=== PATIENT | female | born 1975 | race African-American/Black ===

== ENCOUNTER 2017-03-31 06:45 | Emergency (ER) | payer OTHER ==
[~2017-03-31] VITALS: Ht 157.5 cm; Wt 132.4 kg
[~2017-03-31 06:45] MED LIST: ACETAMINOPHEN-1 EAC1 PO; AMITRIPTYLINE H50 M4 PO; AMOXICILLIN 50500 MG PO; AMOXICILLIN875 MG PO; ATROVENT15 ML NS; AUGMENTIN 875-1 EACH PO; AUGMENTIN 875875 MG PO; AZITHROMYCIN 2250 MG PO; BACTRIM DS TAB1 EACH PO; BENTYL 10 MG CA10 M1; BENTYL 10 MG CA10 M1 PO; BENTYL 20 MG TA20 M1 PO; BIAXIN 500 MG500 M2 PO; CARAFATE 1 GM TA1 GM PO; CIPROFLOXACIN500 M1 PO; CLARITIN10 MG PO; COUMADIN 1MG TAB1 M1 PO; COUMADIN 2 MG TA2 M1 PO; COUMADIN 5 MG TA5 M1 PO; CRUTCH1 EACH MC; DIFLUCAN150 MG PO; ENOXAPARIN100 MG/1 M SQ; ENOXAPARIN150 MG/11 SUBQ; FIORICET 50-301 EACH PO; FIORICET 50-321 EACH PO; FLEXERIL PO; FLOMAX0.4 MG PO; FLONASE 0.05%50 MCG NASAL; FLONASE 0.05%50 MCG NS; FLONASE16 GM NASAL; GABAPENTIN 100100 MG PO; HYDROCODON-ACE1 EAC7 PO; HYDROCODONE-AP1 EAC6 PO; IBUPROFEN 800800 M1 PO; KEFLEX500 MG PO; LOPRESSOR50 PO; LOSARTAN POTASS50 MG PO; LOSARTAN-HCTZ1 EACH PO; LOVENOX SC; MEDROLDOSEPACK PO; NOHOMEMEDICATIONS; NORCO 5-325 TA1 EAC1 PO; NORCO 5-325 TA1 EACH PO; NORCO 7.5-3251 EACH PO; ONDANSETRON HCL4 M2 PO; OXYCODONE; OXYCODONE HCL 55 MG PO; OXYCODONE HCL10 MG PO; OXYCONTIN10 M1 PO; PAXIL10 MG; PERCOCET 10-321 EACH PO; PERCOCET 5-3251 EACH PO; PERCOCET PO; PHENERGAN 25 MG25 M1 PO; PREDNISONE 20 M20 M1 PO; PREDNISONE50 MG PO; PROMETHAZINE-D120 ML PO; PROMETHAZINE12.5 M1 PO; PROMS25 WY RECTAL; PROVENTIL IH; SENOKOT-S1 TA1 PO; SERTRALINE HCL50 MG PO; SUDAFED30 MG PO; TOBREX3.5 GM OP; TOBREX5 ML OP; TRAMADOL 50 MG50 MG PO; ULTRAM 50MG TAB50 MG PO; VICODIN; WELLBUTRIN 75 M75 M1 PO; WELLBUTRIN SR150 MG; WELLBUTRIN75 MG PO; XOPENEX1.25 MG/3 IH; ZOFRAN ODT4 MG PO; ZOFRAN4 MG PO; ZOLOFT100 MG PO; ZOLOFT20 MG/1 ML PO; ZOLOFT50 MG PO
[2017-03-31 07:23] LABS: ABSOLUTE BASOPHILS 0.1 thou/uL (0.0-0.2); ABSOLUTE EOSINOPHILS 0.1 thou/uL (0.0-0.7); ABSOLUTE MONOCYTES 0.5 thou/uL (0.0-1.2); ABSOLUTE NEUTROPHILS 1.5 thou/uL (1.6-8.1); BASOPHILS 1.3 %; EOSINOPHILS 1.2 %; HEMATOCRIT 35.9 % (37.0-47.0); HEMOGLOBIN 11.6 gm/dL (12.0-15.0); LYMPHOCYTES 48.5 %; MCH 26.8 pg (26.0-34.0); MCHC 32.3 g/dL (28.0-37.0); MCV 82.8 fL (80.0-100.0); MONOCYTES 12.4 %; NUCLEATED RBCS 0 /100WBC; PLATELET COUNT* 182 thou/uL (150-400); POLYS 36.6 %; RBC 4.33 mil/uL (4.20-5.00); RDW-CV 17.3 % (10.5-14.5); WBC 4.2 thou/uL (4.0-11.0)
[2017-03-31 07:29] LABS: CALCIUM 9.1 mg/dL (8.5-10.1); CREATININE 1.1 mg/dL (0.6-1.3); POTASSIUM 3.6 mmol/L (3.5-5.1)
[2017-03-31 07:34] LABS: ALBUMIN 3.9 g/dL (3.4-5.0); TOTAL BILIRUBIN 0.3 mg/dL (<0.1-1.0); TOTAL PROTEIN 7.9 g/dL (6.4-8.2)
[2017-03-31 07:49] LABS: APTT 34.2 Seconds (25.0-31.3); INR 2.8; PROTIME 27.2 Seconds (9.20-11.50)
[2017-03-31 08:03] VITALS: BP 144/70
--- NOTE | 2017-03-31 17:38 | EKG ---
[place] [address] ELECTROCARDIOGRAM REPORT Name: TURNERTODD Room: [facility]#: [id number] Admission: 03/31/17 Attend Phys: Discharge: 03/31/17 Date of : 73 Report #: [id number] THIS REPORT FOR: //name// [facility] ED Test Date: 2017-03-31 Test Time: 06:50:56 Pat Name: TODD TURNER Department: Room: Gender: F Journeyman Patternmaker: BRITTNEE Huizar : 1975 Requested By: Raquel Joseph Order Number: [id number] MD: Phan uTrner Measurements Intervals [place] Rate: 111 P: 51 [place]: 134 QRS: 44 QRSD: 73 T: 1 QT: 296 QTc: 402 Interpretive Statements Sinus tachycardia Low voltage, precordial leads Borderline T abnormalities, anterior leads Baseline wander in lead(s) V5,V6 Compared to ECG 05/27/2015 10:08:22 Low QRS voltage now present T-wave abnormality now present Electronically Signed On 03-31-2017 17:38:37 DIRECTOR CHECK by Phan Turner [email or web address] <ELECTRONICALLY SIGNED> By: Phan Turner MD, FACC 03/31/17 1738 0650 0650 Phan Turner MD, FAC /EPI
== END 2017-03-31 08:05 | disposition home or self-care (01) ==
LOC: M.ERS 06:45
PROVIDERS: Emergency Medicine; Family Medicine
DX: R07.89 Other chest pain (principal); G89.29 Other chronic pain; G43.909 Migraine, unspecified, not intractable, without status migrainosus; I10 Essential (primary) hypertension; Z86.718 Personal history of other venous thrombosis and embolism; Z88.8 Allergy status to other drugs, medicaments and biological substances

== ENCOUNTER → 2017-04-01 | Outpatient (CLI) | payer OTHER, MEDICAID | LOC: M.CT 11:00 | DX: K42.9 Umbilical hernia without obstruction or gangrene (principal) ==

== ENCOUNTER 2017-11-18 03:48 | Emergency (ER) | payer OTHER ==
[~2017-11-18] VITALS: Ht 154.9 cm; Wt 133.4 kg
[2017-11-18 04:40] LABS: HEMATOCRIT 40.6 % (37.0-47.0); HEMOGLOBIN 13.1 gm/dL (12.0-15.0); MCH 27.9 pg (26.0-34.0); MCHC 32.2 g/dL (28.0-37.0); MCV 86.5 fL (80.0-100.0); MPV 9.3 fl. (7.2-11.1); NUCLEATED RBCS 1 /100WBC; PLATELET COUNT* 188 thou/uL (150-400); RDW-CV 16.9 % (10.5-14.5); WBC 4.1 thou/uL (4.0-11.0)
[2017-11-18 06:01] LABS: ABSOLUTE BASOPHILS 0.1 thou/uL (0.0-0.2); ABSOLUTE LYMPHOCYTES 2.8 thou/uL (0.8-5.3); ABSOLUTE MONOCYTES 0.2 thou/uL (0.0-1.2); ABSOLUTE NEUTROPHILS 0.9 thou/uL (1.6-8.1); ANISOCYTOSIS Occasional; PLATELET ESTIMATE ADEQUATE
[2017-11-18 06:18] LABS: URINE BILIRUBIN NEGATIVE (Negative); URINE BLOOD NEGATIVE (Negative); URINE CLARITY CLEAR; URINE COLOR YELLOW; URINE GLUCOSE-RANDOM NEGATIVE (Negative); URINE KETONES NEGATIVE (Negative); URINE LEUKOCYTES-REFLEX NEGATIVE (Negative); URINE NITRITE-REFLEX NEGATIVE (Negative); URINE PROTEIN TRACE (Negative); URINE UROBILINOGEN 0.2 E.U./dl (0.2-1.0)
[2017-11-18 06:21] LABS: CALCIUM 8.8 mg/dL (8.5-10.1); POTASSIUM 3.9 mmol/L (3.5-5.1)
[2017-11-18 06:26] LABS: ALBUMIN 3.6 g/dL (3.4-5.0); TOTAL BILIRUBIN 0.3 mg/dL (<0.1-1.0); TOTAL PROTEIN 7.3 g/dL (6.4-8.2)
[2017-11-18 06:56] VITALS: BP 144/92
== END 2017-11-18 06:58 | disposition home or self-care (01) ==
LOC: M.ERS 03:48
PROVIDERS: Emergency Medicine
DX: G89.29 Other chronic pain (principal); R10.11 Right upper quadrant pain; G43.909 Migraine, unspecified, not intractable, without status migrainosus; I10 Essential (primary) hypertension; Z88.8 Allergy status to other drugs, medicaments and biological substances

== ENCOUNTER 2018-05-10 18:29 | Inpatient (IN) | payer BC ==
[~2018-05-10] VITALS: Ht 154.9 cm; Wt 141.1 kg
[2018-05-10 18:48] VITALS: BP 121/83
[2018-05-10 19:30] LABS: ALBUMIN 4.3 g/dL (3.4-5.0); CALCIUM 8.8 mg/dL (8.5-10.1); CREATININE 1.3 mg/dL (0.6-1.3); POTASSIUM 3.9 mmol/L (3.5-5.1); TOTAL BILIRUBIN 0.4 mg/dL (<0.1-1.0); TOTAL PROTEIN 7.5 g/dL (6.4-8.2)
[2018-05-10] MEDS ORDERED: OXYCODONE HCL 55 MG PO (19:34)
[2018-05-10] MEDS ORDERED: COUMADIN6 MG PO (19:34)
[2018-05-10 19:56] LABS: ABSOLUTE LYMPHOCYTES 1.4 thou/uL (0.8-5.3); ABSOLUTE MONOCYTES 0.3 thou/uL (0.0-1.2); ABSOLUTE NEUTROPHILS 0.7 thou/uL (1.6-8.1); BASOPHILS 1.2 %; EOSINOPHILS 0.8 %; HEMATOCRIT 38.8 % (37.0-47.0); MCH 28.7 pg (26.0-34.0); MCHC 33.4 g/dL (28.0-37.0); MCV 86.1 fL (80.0-100.0); MONOCYTES 13.6 %; MPV 9.3 fl. (7.2-11.1); NUCLEATED RBCS 0 /100WBC; PLATELET COUNT* 131 thou/uL (150-400); POLYS 27.4 %; RBC 4.51 mil/uL (4.20-5.00); RDW-CV 16.6 % (10.5-14.5); WBC 2.5 thou/uL (4.0-11.0)
[2018-05-10 20:06] LABS: APTT 32.4 Seconds (25.0-31.3); INR 3.9; PROTIME 39.9 Seconds (9.20-11.50)
[2018-05-10 23:15] VITALS: BP 135/83
[2018-05-11] MEDS ORDERED: NEURONTIN 300300 M1 PO (01:47)
[2018-05-11] MEDS ORDERED: PHENERGAN 25 MG25 M1 PO (01:48)
[2018-05-11] MEDS ORDERED: CARAFATE 1 GM TA1 G1 PO (01:50)
--- NOTE | 2018-05-11 05:47 | NUR ---
REPORT RECIEVED FROM ER. PT ADMITTED TO ROOM 317. PT ORIENTED TO ROOM, CALL LIGHT SHOWN, FALL AGREEMENT WENT OVER, PT STATED UNDERSTANDING. ADMISSION DOCUMENTED. IV PATENT, FLUIDS INFUSING. PT STATED SHE HAS HAD THIS ABDOMINAL PAIN "FOR AWHILE" AND THEY COULD NOT FIGURE OUT WHAT IS CAUSING IT WHEN SHE WENT TO [facility], SHE STATED THAT THEIR GI DOCTOR TOLD HER IT WAS PROBABLY FROM HER BLOOD CLOTTING DISORDER. PT ALSO REPORTS SORE THROAT, ARM PAIN, AND SWELLING IN HER RIGHT ARM WHERE SHE HAD AN IV AT [facility], PT STATES THAT SHE LEFT THERE 05/09/18. PAIN AND NAUSEA MEDS GIVEN PER E-MAR. MEDICAL RECORDS REQUESTED FROM [facility] REQUESTED AND RECIEVED, PLACED ON FRONT OF CHART. PT ASKED TO SPEAK TO ESTIMATOR AND DRAFTER THIS SHIFT, ESTIMATOR AND DRAFTER TALKED TO ER DOCTOR ABOUT PT STATING SHE HAS STREP AND AN ORDER FOR IM ABX RECIEVED FROM ER DOCTOR AND GIVEN PER E-MAR. PT ALSO ASKING IF SHE COULD GET BACTRIM OINTMENT FOR HER NOSE. WILL CONTINUE WITH PLAN OF CARE.
--- NOTE | 2018-05-11 06:53 | NUR ---
PT STATES THAT HER COUMADIN LEVELS WERE TOO HIGH ON HER LAST CHECK SO SHE HAS NOT HAD HER COUMADIN FOR THE LAST 2 DAYS BUT IS SUPOSED TO START IT UP AGAIN TODAY.
[2018-05-11 07:58] VITALS: BP 143/92
--- NOTE | 2018-05-11 11:04 | NUR ---
SW met with pt to complete initial assessment, introduce self, and SW role. Pt at bedside. Pt lives at home with . Pt back on coumadin now and says she also has a machine at home that checks her INR. Pt thinks she has some rx coverage now through her 's insurance. Pt did not express any dc needs or questions at this time. SW to continue to follow.
--- NOTE | 2018-05-11 11:36 | EKG ---
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
[2018-05-11 15:20] VITALS: BP 138/58
[2018-05-11 20:15] VITALS: BP 117/66
[2018-05-11 23:45] LABS: URINE BILIRUBIN NEGATIVE (Negative); URINE BLOOD 3+ (Negative); URINE CLARITY CLEAR; URINE COLOR YELLOW; URINE GLUCOSE-RANDOM NEGATIVE (Negative); URINE KETONES NEGATIVE (Negative); URINE LEUKOCYTES-REFLEX NEGATIVE (Negative); URINE NITRITE-REFLEX NEGATIVE (Negative); URINE PROTEIN NEGATIVE (Negative); URINE SPECIFIC GRAVITY 1.025 (1.005-1.030); URINE UROBILINOGEN 0.2 E.U./dl (0.2-1.0)
[2018-05-11 23:51] LABS: CASTS None Seen /LPF (None Seen); CRYSTALS None Seen /LPF (None Seen); SQUAMOUS 4-10 Moderate /LPF (0-3); URINE RBC 3-10 Few /HPF (0-2); URINE WBC-REFLEX 0-5 Rare /HPF (0-5)
[2018-05-11 23:53] LABS: AMP/METHAMP Negative (Negative); BARBITURATES Negative (Negative); BENZODIAZEPINES Negative (Negative); COCAINE Negative (Negative); METHADONE Negative (Negative); OPIATES POSITIVE (Negative); PCP Negative (Negative); THC Negative (Negative)
[2018-05-12 04:45] LABS: ABSOLUTE LYMPHOCYTES 1.3 thou/uL (0.8-5.3); ABSOLUTE MONOCYTES 0.4 thou/uL (0.0-1.2); ABSOLUTE NEUTROPHILS 0.5 thou/uL (1.6-8.1); EOSINOPHILS 0.6 %; HEMATOCRIT 37.4 % (37.0-47.0); HEMOGLOBIN 12.3 gm/dL (12.0-15.0); LYMPHOCYTES 58.9 %; MCH 28.3 pg (26.0-34.0); MCV 85.7 fL (80.0-100.0); MONOCYTES 17.6 %; MPV 9.4 fl. (7.2-11.1); NUCLEATED RBCS 0 /100WBC; PLATELET COUNT* 117 thou/uL (150-400); POLYS 21.9 %; RBC 4.37 mil/uL (4.20-5.00); RDW-CV 17.1 % (10.5-14.5); WBC 2.1 thou/uL (4.0-11.0)
[2018-05-12 04:54] LABS: INR 2.5; PROTIME 25.1 Seconds (9.20-11.50)
[2018-05-12 05:05] LABS: CALCIUM 8.9 mg/dL (8.5-10.1); CREATININE 1.2 mg/dL (0.6-1.3); TOTAL BILIRUBIN 0.4 mg/dL (<0.1-1.0); TOTAL PROTEIN 7.1 g/dL (6.4-8.2)
--- NOTE | 2018-05-12 05:37 | NUR ---
PT HAS SLEPT ON AND OFF OVERNIGHT, IN RECLINER AT BEDSIDE. UP AD PHILLIP IN ROOM, VOIDING WITHOUT DIFFICULTY. LFA IVF INFUSING PER PUMP. IV PAIN MED GIVEN X2 FOR CO R SIDED ABD PAIN, PO PAIN MED X1, ZOFRAN X1 FOR CO NAUSEA WITHOTU EMESIS. TOLERATING DIET WITHOUT EMESIS, HAS BEEN NPO SINCE MIDNIGHT FOR ABD US TODAY. AM LABS DRAWN. VSS. ABLE TO USE CALL LITE AND MAKE NEEDS KNOWN.
[2018-05-12 08:05] VITALS: BP 141/98
[2018-05-12 17:09] VITALS: BP 145/78
[2018-05-12 20:00] VITALS: BP 148/85
--- NOTE | 2018-05-13 04:51 | NUR ---
ASSUMED CARE OF PT AT 1900 PT ALERT AND ORIENTED X 4 VS AND ASSESSMENT AT PTS BASELINE. PT REQUESTED PRN PAIN MEDS EVERY TWO HOURS ALTERNATING PRN OXYCODONE WITH PRN HYDROMORPHONE AND ALSO RECIEVED ZOFRAN X2. PT SLEPT IN BETWEEN. NO FURTHER COMPLAINTS. WILL CONTINUE PLAN OF CARE.
[2018-05-13 08:30] VITALS: BP 134/82
[2018-05-13 11:06] VITALS: BP 134/82
--- NOTE | 2018-05-13 12:25 | NUR ---
PATIENT'S IV REMOVED. PATIENT GIVEN PAIN PILL PER REQUEST. PATIENT GIVEN DISCHARGE INSTRUCTIONS AND VERBALIZED UNDERSTANDING. PATIENT ESCORTED OFF NURSING UNIT VIA WHEELCHAIR WITH ALL BELONGINGS. DISCHARGED TO HOME WITH .
--- NOTE | 2018-05-14 09:57 | CON ---
[facility] [address] [place] [address] CONSULTATION Name: TURNERTODD Room: [address] IN M.R.#: [id number] Admission: 05/10/18 Attend Phys: West Bateman MD Discharge: 05/13/18 Date of : 73 Report #: [id number] THIS REPORT FOR: //name// CC: Suresh Bateman DICTATED BY: Danuta Vital [facility] DATE OF SERVICE: 05/11/2018 PRIMARY CARE PHYSICIAN: Suresh Hawkins M.D. REASON FOR CONSULTATION: Nausea, vomiting and abdominal pain. Please note at the time of this dictation, the patient was seen and physically examined by myself. HISTORY OF PRESENT ILLNESS: This 42-year-old female presented to the Emergency Room after being dismissed from [facility] on 05/09/2018 where she had been there for about 5 days for the abdominal pain, nausea and vomiting, which now has been ongoing for about 2 weeks. The patient denies any hematemesis or hematochezia at this time with these episodes. She is also complaining of this right upper quadrant pain, which is chronic for her, but she feels that it has been worsening as well. She does complain of early satiety, which she has noted for several months that she does not eat as much as she used to. The patient was last seen by us in hospitalization in May of 2016 in which she underwent an EGD showing a small hiatal hernia and gastritis. Apparently then later, she did see someone at [facility] shortly thereafter and had an EGD and colonoscopy. She does not recall those results and will need to obtain. When she was at [facility], she did see Dr. Medeiros; however, endoscopy studies were held off due to her elevated INR. It was also noted that the patient left AMA from [facility] as well. She has been taking Protonix and Carafate without any relief of her symptoms. ALLERGIES: IMITREX. MEDICATIONS: From home: Percocet, Neurontin, Elavil and Senokot. She has had her warfarin on hold. 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 She also has a long history of portal vein thrombus as well. PAST SURGICAL HISTORY: Tubal ligation, tonsil and adenoidectomy [place] [address] CONSULTATION Name: TODD TURNER Room: [address]#: [id number] Admission: 05/10/18 Attend Phys: West Bateman MD Discharge: 05/13/18 Date of : 73 Report #: [id number] FAMILY HISTORY: Negative for any GI or female cancers. SOCIAL HISTORY: Denies any alcohol, tobacco or illegal drug use. REVIEW OF SYSTEMS: Twelve-point review of systems is essentially negative except what is mentioned in the HPI. PHYSICAL EXAMINATION: VITAL SIGNS: Temperature 36.8, pulse 87, respirations 16 and blood pressure 143/92. HEART: Regular rate and rhythm. LUNGS: Clear, slightly diminished. ABDOMEN: Soft. Positive bowel sounds in all 4 quadrants with some right upper quadrant tenderness noted to palpation. RADIOLOGICAL DATA: In reviewing records from [facility], she had a CT scan done that was done on the that showed an umbilical hernia as well as portal vein thrombus with chronic cavernous transformation noted. LABORATORY DATA: Hemoglobin is 13, white count is 2.5 and platelets are 131. PT is 39.9 and INR is 3.9. GFR is 54. IMPRESSION: 1. Nausea and vomiting. 2. Abdominal pain, chronic but acute. 3. Early satiety. 4. Portal vein thrombosis. 5. Leukopenia. 6. Thrombocytopenia. 7. Chronic kidney disease. 8. Morbid obesity. PLAN: 1. GET if we can do this today. 2. I will increase her amitriptyline to 75 mg daily. 3. We will obtain records from [facility] from her previous endoscopy studies. 4. We will have to wait for the patient's INR to come down for endoscopy interventions. Thank you for allowing us to participate in this patient's care. Please do not hesitate to call with any questions in regard to this consult. ADDENDUM REFERRING PHYSICIAN: [place] [address] CONSULTATION Name: TURNERTODD Room: [address] IN [facility].#: [id number] Admission: 05/10/18 Attend Phys: West Bateman MD Discharge: 05/13/18 Date of : 73 Report #: [id number] I have seen and examined the patient and agree with plan that has been outlined by our nurse practitioner, Danuta Vital. In reviewing the patient's history, I have recommended she undergo an abdominal ultrasound plus a 4-hour gastric emptying scan to evaluate her complaints of recurrent upper abdominal pain. She has known history of portal vein thrombosis secondary to clotting deficiency and is maintained on chronic Coumadin and monitors her blood very carefully at home. She had similar type issues a few years ago for which she underwent abdominal ultrasound, CCK-PIPIDA scan and CT scans of abdomen and pelvis. ____ that she was a very good candidate for surgery for her gallbladder in case with her issues and she has since kept her gallbladder. Her pain is not related to eating or drinking and is likely related to her portal vein thrombosis and clotting issues. We will proceed with abdominal ultrasound as well as a 4-hour gastric emptying scan and make further recommendations thereafter. If everything comes out negative, she will likely be able to go home and she will need to follow up with Dr. Martinez as an outpatient. She is due for an upper endoscopy to evaluate status of her esophageal varices as she has been noted a couple of years ago, but I will defer all those testing to him. I have also recommended she has problems in the future, she should go to [facility] instead of here because her problems are going to be centered around her portal vein thrombosis and clotting disorders. She is anxious for discharge and we will likely be able to discharge in the next day or so. <ELECTRONICALLY SIGNED> By: Ash Schwartz DO 05/14/18 0957 1158 [id number] Schwartz DO /nt
== END 2018-05-13 12:28 | disposition home or self-care (01) | DRG 391 ==
LOC: M.ERS 18:29 → M.TBA-ER 21:47 → M.3W 22:16
PROVIDERS: Internal Medicine Gastroenterology; Physician Assistant; ADMIT Family Medicine
DX: R10.9 Unspecified abdominal pain (principal); I81 Portal vein thrombosis; Z68.43 Body mass index [BMI] 50.0-59.9, adult; D68.51 Activated protein C resistance; G43.909 Migraine, unspecified, not intractable, without status migrainosus; N18.3 Chronic kidney disease, stage 3 (moderate); R11.2 Nausea with vomiting, unspecified; I10 Essential (primary) hypertension; R68.81 Early satiety; D72.819 Decreased white blood cell count, unspecified; D69.6 Thrombocytopenia, unspecified; E66.01 Morbid (severe) obesity due to excess calories; Z86.718 Personal history of other venous thrombosis and embolism; Z86.711 Personal history of pulmonary embolism; Z79.01 Long term (current) use of anticoagulants; Z79.899 Other long term (current) drug therapy; Z88.8 Allergy status to other drugs, medicaments and biological substances

== ENCOUNTER 2018-05-27 01:00 | Emergency (ER) | payer BC ==
[~2018-05-27] VITALS: Ht 154.9 cm; Wt 137.9 kg
[~2018-05-27 01:00] MED LIST changes: +CARAFATE 1 GM TA1 G1 PO; +COUMADIN6 MG PO; +NEURONTIN 300300 M1 PO
[2018-05-27 01:45] LABS: ABSOLUTE LYMPHOCYTES 1.2 thou/uL (0.8-5.3); ABSOLUTE MONOCYTES 0.1 thou/uL (0.0-1.2); ABSOLUTE NEUTROPHILS 3.2 thou/uL (1.6-8.1); BASOPHILS 0.6 %; HEMATOCRIT 37.4 % (37.0-47.0); HEMOGLOBIN 12.4 gm/dL (12.0-15.0); LYMPHOCYTES 26.4 %; MCH 28.3 pg (26.0-34.0); MCHC 33.2 g/dL (28.0-37.0); MCV 85.3 fL (80.0-100.0); MONOCYTES 2.9 %; MPV 8.9 fl. (7.2-11.1); NUCLEATED RBCS 0 /100WBC; PLATELET COUNT* 168 thou/uL (150-400); POLYS 70.1 %; RBC 4.38 mil/uL (4.20-5.00); WBC 4.5 thou/uL (4.0-11.0)
[2018-05-27 01:50] LABS: INR 2.4; PROTIME 24.2 Seconds (9.20-11.50)
[2018-05-27 01:52] LABS: ALBUMIN 4.8 g/dL (3.4-5.0); CALCIUM 9.8 mg/dL (8.5-10.1); CREATININE 1.4 mg/dL (0.6-1.3); POTASSIUM 3.7 mmol/L (3.5-5.1); TOTAL BILIRUBIN 1.3 mg/dL (<0.1-1.0); TOTAL PROTEIN 8.5 g/dL (6.4-8.2)
[2018-05-27] MEDS ORDERED: ZOFRAN ODT4 MG PO (03:32)
[2018-05-27 04:53] VITALS: BP 128/72
== END 2018-05-27 04:53 | disposition home or self-care (01) ==
LOC: M.ERS 01:00
PROVIDERS: Emergency Medicine
DX: G89.29 Other chronic pain (principal); R10.11 Right upper quadrant pain; R11.2 Nausea with vomiting, unspecified; I10 Essential (primary) hypertension; Z88.8 Allergy status to other drugs, medicaments and biological substances; G43.909 Migraine, unspecified, not intractable, without status migrainosus; Z86.718 Personal history of other venous thrombosis and embolism; Z98.890 Other specified postprocedural states

== ENCOUNTER 2018-08-27 23:28 | Emergency (ER) | payer BC ==
[~2018-08-27] VITALS: Ht 157.5 cm; Wt 128.8 kg
[2018-08-27 23:53] LABS: ABSOLUTE BASOPHILS 0.1 thou/uL (0.0-0.2); ABSOLUTE LYMPHOCYTES 1.6 thou/uL (0.8-5.3); ABSOLUTE MONOCYTES 0.3 thou/uL (0.0-1.2); ABSOLUTE NEUTROPHILS 1.5 thou/uL (1.6-8.1); BASOPHILS 1.8 %; EOSINOPHILS 0.9 %; HEMATOCRIT 38.2 % (37.0-47.0); HEMOGLOBIN 12.7 gm/dL (12.0-15.0); LYMPHOCYTES 45.1 %; MCH 28.3 pg (26.0-34.0); MCHC 33.2 g/dL (28.0-37.0); MCV 85.2 fL (80.0-100.0); MONOCYTES 9.7 %; MPV 9.2 fl. (7.2-11.1); NUCLEATED RBCS 0 /100WBC; PLATELET COUNT* 132 thou/uL (150-400); POLYS 42.5 %; RBC 4.48 mil/uL (4.20-5.00); RDW-CV 16.6 % (10.5-14.5); WBC 3.5 thou/uL (4.0-11.0)
[2018-08-28 00:03] LABS: ANION GAP 11 mmol/L (7-16); BUN 11 mg/dL (7-18); CALCIUM 9.2 mg/dL (8.5-10.1); CHLORIDE 101 mmol/L (98-107); CO2 27 mmol/L (21-32); CREATININE 1.2 mg/dL (0.6-1.3); GLUCOSE 85 mg/dL (70-99); POTASSIUM 3.2 mmol/L (3.5-5.1); SODIUM 139 mmol/L (136-145)
[2018-08-28 00:05] LABS: INR 1.3; PROTIME 13.1 Seconds (9.20-11.50)
[2018-08-28 00:12] LABS: ALBUMIN 4.5 g/dL (3.4-5.0); ALKALINE PHOSPHATASE 54 U/L (46-116); LIPASE 228 U/L (73-393); SGOT 16 U/L (15-37); SGPT 27 U/L (30-65); TOTAL BILIRUBIN 1.2 mg/dL (<0.1-1.0); TOTAL PROTEIN 7.6 g/dL (6.4-8.2); TROPONIN-I LEVEL <0.06 ng/mL (<0.06)
[2018-08-28 00:39] LABS: URINE BILIRUBIN NEGATIVE (Negative); URINE BLOOD NEGATIVE (Negative); URINE CLARITY CLEAR; URINE COLOR YELLOW; URINE GLUCOSE-RANDOM NEGATIVE (Negative); URINE KETONES TRACE (Negative); URINE LEUKOCYTES-REFLEX NEGATIVE (Negative); URINE NITRITE-REFLEX NEGATIVE (Negative); URINE PROTEIN NEGATIVE (Negative); URINE UROBILINOGEN 0.2 E.U./dl (0.2-1.0)
[2018-08-28 04:25] VITALS: BP 123/67
[2018-08-28] MEDS ORDERED: ZOFRAN ODT4 MG PO (04:30)
--- NOTE | 2018-08-29 13:55 | EKG ---
[place] [address] ELECTROCARDIOGRAM REPORT Name: TODD TURNER Room: [facility]#: [id number] Admission: 08/27/18 Attend Phys: Discharge: 08/28/18 Date of : 73 Report #: [id number] THIS REPORT FOR: //name// [facility] ED Test Date: 2018-08-27 Test Time: 23:36:02 Pat Name: TODD TURNER Department: Room: Gender: F Claim Adjuster: ELROY : 1975 Requested By: Noreen Gannon Order Number: [id number] MD: Suresh Chau Measurements Intervals [place] Rate: 102 P: 47 [place]: 131 QRS: 17 QRSD: 73 T: 3 QT: 350 QTc: 456 Interpretive Statements Sinus tachycardia Low voltage, precordial leads Compared to ECG 05/10/2018 22:35:32 Low QRS voltage now present Sinus rhythm no longer present Electronically Signed On 08-29-2018 13:55:13 CDT by Suresh Chau [email or web address] <ELECTRONICALLY SIGNED> By: Suresh Chau MD, [facility] 08/29/18 1355 2336 2336 Suresh Chau MD, [facility] /EPI
== END 2018-08-28 04:25 | disposition home or self-care (01) ==
LOC: M.ERS 23:28
PROVIDERS: Nurse Practitioner Family
DX: R10.10 Upper abdominal pain, unspecified (principal); R07.89 Other chest pain; R11.2 Nausea with vomiting, unspecified; G43.909 Migraine, unspecified, not intractable, without status migrainosus; I10 Essential (primary) hypertension; Z86.718 Personal history of other venous thrombosis and embolism; Z88.8 Allergy status to other drugs, medicaments and biological substances

== ENCOUNTER 2018-09-28 08:33 | Emergency (ER) | payer MEDICARE, OTHER ==
[~2018-09-28] VITALS: Ht 154.9 cm; Wt 90.7 kg
[2018-09-28 09:04] LABS: ABSOLUTE LYMPHOCYTES 1.5 thou/uL (0.8-5.3); ABSOLUTE MONOCYTES 0.3 thou/uL (0.0-1.2); ABSOLUTE NEUTROPHILS 1.1 thou/uL (1.6-8.1); EOSINOPHILS 0.9 %; HEMOGLOBIN 12.3 gm/dL (12.0-15.0); MCH 28.4 pg (26.0-34.0); MCHC 33.2 g/dL (28.0-37.0); MCV 85.4 fL (80.0-100.0); MONOCYTES 10.5 %; MPV 8.9 fl. (7.2-11.1); NUCLEATED RBCS 0 /100WBC; PLATELET COUNT* 127 thou/uL (150-400); POLYS 35.6 %; RBC 4.33 mil/uL (4.20-5.00); RDW-CV 16.5 % (10.5-14.5)
[2018-09-28 09:20] LABS: APTT 24.1 Seconds (25.0-31.3); INR 1.5; PROTIME 15.5 Seconds (9.20-11.50)
[2018-09-28 09:26] LABS: CALCIUM 9.2 mg/dL (8.5-10.1); CREATININE 1.3 mg/dL (0.6-1.3); POTASSIUM 3.7 mmol/L (3.5-5.1)
[2018-09-28] MEDS ORDERED: ZOFRAN ODT4 MG SUBLING (09:28)
[2018-09-28 09:30] LABS: ALBUMIN 4.6 g/dL (3.4-5.0); TOTAL BILIRUBIN 1.6 mg/dL (<0.1-1.0); TOTAL PROTEIN 7.7 g/dL (6.4-8.2)
[2018-09-28 09:37] VITALS: BP 145/97
== END 2018-09-28 09:37 | disposition home or self-care (01) ==
LOC: M.ERS 08:33
PROVIDERS: Family Medicine
DX: R10.11 Right upper quadrant pain (principal); G89.29 Other chronic pain; R11.2 Nausea with vomiting, unspecified; I10 Essential (primary) hypertension; Z88.8 Allergy status to other drugs, medicaments and biological substances

== ENCOUNTER 2018-12-22 09:55 | Emergency (ER) | payer MEDICARE, OTHER ==
[~2018-12-22] VITALS: Ht 157.5 cm; Wt 115.7 kg
[~2018-12-22 09:55] MED LIST changes: +ZOFRAN ODT4 MG SUBLING
[2018-12-22 10:19] LABS: ABSOLUTE LYMPHOCYTES 1.7 thou/uL (0.8-5.3); ABSOLUTE MONOCYTES 0.4 thou/uL (0.0-1.2); ABSOLUTE NEUTROPHILS 0.8 thou/uL (1.6-8.1); BASOPHILS 0.6 %; EOSINOPHILS 0.2 %; HEMATOCRIT 36.3 % (37.0-47.0); HEMOGLOBIN 12.2 gm/dL (12.0-15.0); LYMPHOCYTES 59.3 %; MCH 28.4 pg (26.0-34.0); MCHC 33.6 g/dL (28.0-37.0); MCV 84.4 fL (80.0-100.0); MONOCYTES 12.6 %; MPV 9.2 fl. (7.2-11.1); NUCLEATED RBCS 0 /100WBC; PLATELET COUNT* 113 thou/uL (150-400); POLYS 27.3 %; RDW-CV 16.2 % (10.5-14.5); WBC 2.8 thou/uL (4.0-11.0)
[2018-12-22 10:32] LABS: CALCIUM 9.5 mg/dL (8.5-10.1); CREATININE 1.2 mg/dL (0.6-1.3)
[2018-12-22 10:34] LABS: POTASSIUM 2.9 mmol/L (3.5-5.1)
[2018-12-22 10:42] LABS: APTT 22.4 Seconds (25.0-31.3); INR 1.3; PROTIME 12.9 Seconds (9.20-11.50)
[2018-12-22 10:45] LABS: ALBUMIN 4.9 g/dL (3.4-5.0); TOTAL BILIRUBIN 2.5 mg/dL (<0.1-1.0); TOTAL PROTEIN 7.9 g/dL (6.4-8.2)
[2018-12-22 10:48] LABS: NT-PRO BRAIN NAT PEPTIDE 11 pg/mL (<300)
[2018-12-22 11:55] LABS: URINE BILIRUBIN NEGATIVE (Negative); URINE BLOOD NEGATIVE (Negative); URINE CLARITY CLEAR; URINE COLOR YELLOW; URINE GLUCOSE-RANDOM NEGATIVE (Negative); URINE KETONES NEGATIVE (Negative); URINE LEUKOCYTES-REFLEX NEGATIVE (Negative); URINE NITRITE-REFLEX NEGATIVE (Negative); URINE PROTEIN NEGATIVE (Negative)
[2018-12-22] MEDS ORDERED: ONDANSETRON ODT4 MG PO (12:54)
[2018-12-22] MEDS ORDERED: POTASSIUM20 PO (12:54)
[2018-12-22 13:13] VITALS: BP 124/70
--- NOTE | 2018-12-22 16:14 | EKG ---
[place] [address] ELECTROCARDIOGRAM REPORT Name: IRINA TURNERNISHPiotr Barajas [facility] [id number] Admission: 12/22/18 Attend Phys: Discharge: 12/22/18 Date of : 73 Report #: [id number] THIS REPORT FOR: //name// [facility] ED Test Date: 2018-12-22 Test Time: 10:00:15 Pat Name: TODD TURNER Department: Room: Gender: F Investment Strategist: : 1975 Requested By: Yony Hernandez Order Number: [id number] MD: Pablito Pittman Measurements Intervals [place] Rate: 109 P: 37 [place]: 143 QRS: 22 QRSD: 74 T: -4 QT: 323 QTc: 436 Interpretive Statements Sinus tachycardia Probable left atrial enlargement Low voltage, precordial leads Borderline T abnormalities, anterior leads Compared to ECG 08/27/2018 23:36:02 T-wave abnormality now present Electronically Signed On 12-22-2018 16:14:14 CDT by Pablito Pittman [email or web address] <ELECTRONICALLY SIGNED> By: Pablito Pittman MD, [facility] 12/22/18 1614 1000 1000 Pablito Pittman MD, [facility] /EPI
== END 2018-12-22 13:14 | disposition home or self-care (01) ==
LOC: M.ERS 09:55
PROVIDERS: Physician Assistant
DX: E87.6 Hypokalemia (principal); R07.89 Other chest pain; G89.29 Other chronic pain; R10.13 Epigastric pain; D72.819 Decreased white blood cell count, unspecified; R74.8 Abnormal levels of other serum enzymes; Z88.8 Allergy status to other drugs, medicaments and biological substances; I10 Essential (primary) hypertension

== ENCOUNTER → 2019-01-03 | Outpatient (CLI) | payer MEDICARE, OTHER ==
[~2019-01-03] MED LIST changes: +ONDANSETRON ODT4 MG PO; +POTASSIUM20 PO
== END ==
LOC: M.ULTRA 12-06 13:00
DX: I81 Portal vein thrombosis (principal); G89.4 Chronic pain syndrome; F51.01 Primary insomnia

== ENCOUNTER → 2019-01-18 | Outpatient (CLI) | payer MEDICARE, OTHER | LOC: M.ULTRA 12-08 13:00 | DX: I81 Portal vein thrombosis (principal); G89.4 Chronic pain syndrome; F51.01 Primary insomnia ==

== ENCOUNTER 2019-02-16 02:00 | Emergency (ER) | payer OTHER, MEDICARE ==
[~2019-02-16] VITALS: Ht 157.5 cm; Wt 115.2 kg
[2019-02-16 04:06] VITALS: BP 133/85
== END 2019-02-16 04:08 | disposition home or self-care (01) ==
LOC: M.ERS 02:00
DX: G43.909 Migraine, unspecified, not intractable, without status migrainosus (principal); I10 Essential (primary) hypertension; Z88.8 Allergy status to other drugs, medicaments and biological substances; Z98.51 Tubal ligation status

== ENCOUNTER → 2019-04-18 | Outpatient (CLI) | payer OTHER | LOC: M.CT 03-17 13:00 → M.MRI 03-21 13:30 → M.CT 12:35 | DX: J34.89 Other specified disorders of nose and nasal sinuses (principal); J34.2 Deviated nasal septum; I81 Portal vein thrombosis; F51.01 Primary insomnia; J01.90 Acute sinusitis, unspecified ==

== ENCOUNTER 2019-08-22 08:48 | Emergency (ER) | payer OTHER ==
[~2019-08-22] VITALS: Ht 157.5 cm; Wt 133.8 kg
[2019-08-22] MEDS ORDERED: PERCOCET 5-3251 EACH PO (09:21)
[2019-08-22 10:49] VITALS: BP 156/95
== END 2019-08-22 10:51 | disposition home or self-care (01) ==
LOC: M.ERS 08:48
DX: M17.11 Unilateral primary osteoarthritis, right knee (principal); I10 Essential (primary) hypertension; Z98.51 Tubal ligation status; Z88.8 Allergy status to other drugs, medicaments and biological substances; Z79.899 Other long term (current) drug therapy; Z79.01 Long term (current) use of anticoagulants

== ENCOUNTER 2019-08-28 13:30 | Emergency (ER) | payer OTHER ==
[~2019-08-28] VITALS: Ht 157.5 cm; Wt 132.0 kg
[2019-08-28 14:23] LABS: ABSOLUTE BASOPHILS 0.1 thou/uL (0.0-0.2); ABSOLUTE LYMPHOCYTES 1.4 thou/uL (0.8-5.3); ABSOLUTE MONOCYTES 0.3 thou/uL (0.0-1.2); ABSOLUTE NEUTROPHILS 1.3 thou/uL (1.6-8.1); BASOPHILS 2.5 %; HEMOGLOBIN 12.1 gm/dL (12.0-15.0); LYMPHOCYTES 45.4 %; MCH 28.9 pg (26.0-34.0); MCHC 33.7 g/dL (28.0-37.0); MCV 85.5 fL (80.0-100.0); MONOCYTES 9.9 %; MPV 9.1 fl. (7.2-11.1); NUCLEATED RBCS 0 /100WBC; PLATELET COUNT* 140 thou/uL (150-400); POLYS 41.2 %; RBC 4.21 mil/uL (4.20-5.00); RDW-CV 17.7 % (10.5-14.5); WBC 3.1 thou/uL (4.0-11.0)
[2019-08-28 14:32] LABS: CALCIUM 8.8 mg/dL (8.5-10.1); CREATININE 1.1 mg/dL (0.6-1.3)
[2019-08-28 14:34] LABS: APTT 28.3 Seconds (25.0-31.3); PROTIME 29.3 Seconds (9.20-11.50)
[2019-08-28 14:36] LABS: ALBUMIN 4.3 g/dL (3.4-5.0); TOTAL PROTEIN 7.8 g/dL (6.4-8.2)
--- NOTE | 2019-08-28 15:28 | EKG ---
[place] [address] ELECTROCARDIOGRAM REPORT Name: TODD TURNER Room: [facility]#: [id number] Admission: 08/28/19 Attend Phys: Discharge: Date of : 73 Date of Service: 08/28/19 1345 Report #: [id number] THIS REPORT FOR: //name// [facility] ED Test Date: 2019-08-28 Test Time: 13:45:12 Pat Name: TODD TURNER Department: Room: Gender: Automatic Steel Tie Adjuster: [facility] : 1975 Requested By: Stephanie Valle Order Number: [id number] MD: Suresh Chau Measurements Intervals [place] Rate: 99 P: 29 [place]: 138 QRS: 14 QRSD: 84 T: 8 QT: 352 QTc: 452 Interpretive Statements Sinus rhythm Borderline T wave abnormalities Compared to ECG 12/22/2018 10:00:15 Sinus tachycardia no longer present T-wave abnormality still present Electronically Signed On 08-28-2019 15:27:06 CDT by Suresh Chau [email or web address] <ELECTRONICALLY SIGNED> By: Suresh Chau MD, [facility] 08/28/19 1527 1345 1345 Suresh Chau MD, [facility] /EPI
[2019-08-28] MEDS ORDERED: VENTOLIN HFA 1818 GM INH ×2 (15:39→16:50)
[2019-08-28] MEDS ORDERED: BUTALB-APAP-CA1 EACH PO ×3 (15:39→16:33)
[2019-08-28] MEDS ORDERED: AUGMENTIN 875-1 EACH PO (15:39)
[2019-08-28] MEDS ORDERED: DOXYCYCLINE 10100 MG PO (16:50)
[2019-08-28 17:02] VITALS: BP 134/65
== END 2019-08-28 17:03 | disposition home or self-care (01) ==
LOC: M.ERS 13:30
PROVIDERS: Nurse Practitioner Family
DX: J32.9 Chronic sinusitis, unspecified (principal); G43.909 Migraine, unspecified, not intractable, without status migrainosus; R07.89 Other chest pain; I10 Essential (primary) hypertension; Z88.1 Allergy status to other antibiotic agents; Z88.8 Allergy status to other drugs, medicaments and biological substances; Z79.01 Long term (current) use of anticoagulants; Z98.51 Tubal ligation status; Z86.718 Personal history of other venous thrombosis and embolism

== ENCOUNTER 2019-09-21 11:07 | Emergency (ER) | payer OTHER ==
[~2019-09-21] VITALS: Ht 154.9 cm; Wt 132.0 kg
[~2019-09-21 11:07] MED LIST changes: +BUTALB-APAP-CA1 EACH PO; +DOXYCYCLINE 10100 MG PO; +VENTOLIN HFA 1818 GM INH
[2019-09-21 12:20] LABS: INR 2.2; PROTIME 21.6 Seconds (9.20-11.50)
[2019-09-21 13:37] VITALS: BP 132/70
== END 2019-09-21 13:38 | disposition home or self-care (01) ==
LOC: M.ERS 11:07
PROVIDERS: Family Medicine
DX: R51 Headache (principal); I10 Essential (primary) hypertension; Z98.51 Tubal ligation status; Z86.718 Personal history of other venous thrombosis and embolism; Z88.1 Allergy status to other antibiotic agents; Z88.8 Allergy status to other drugs, medicaments and biological substances

== ENCOUNTER 2019-10-06 09:57 | Emergency (ER) | payer OTHER ==
[~2019-10-06] VITALS: Ht 154.9 cm; Wt 132.0 kg
[2019-10-06 12:04] VITALS: BP 144/84
== END 2019-10-06 12:04 | disposition home or self-care (01) ==
LOC: M.ERS 09:57
DX: G43.909 Migraine, unspecified, not intractable, without status migrainosus (principal); I10 Essential (primary) hypertension; Z98.51 Tubal ligation status; Z86.718 Personal history of other venous thrombosis and embolism; Z88.1 Allergy status to other antibiotic agents; Z88.8 Allergy status to other drugs, medicaments and biological substances

== ENCOUNTER 2020-05-19 01:31 | Emergency (ER) | payer OTHER ==
[~2020-05-19] VITALS: Ht 157.5 cm; Wt 118.4 kg
[2020-05-19] MEDS ORDERED: PROTONIX40 M4 PO (01:40)
[2020-05-19 02:08] LABS: CALCIUM 9.7 mg/dL (8.5-10.1); CREATININE 1.2 mg/dL (0.6-1.3); POTASSIUM 3.6 mmol/L (3.5-5.1)
[2020-05-19 02:12] LABS: APTT 25.1 Seconds (25.0-31.3); INR 1.6
[2020-05-19 02:13] LABS: ALBUMIN 4.4 g/dL (3.4-5.0); TOTAL BILIRUBIN 1.5 mg/dL (<0.1-1.0); TOTAL PROTEIN 7.7 g/dL (6.4-8.2)
[2020-05-19 02:14] LABS: HEMATOCRIT 35.2 % (37.0-47.0); HEMOGLOBIN 11.4 gm/dL (12.0-15.0); MCH 26.7 pg (26.0-34.0); MCHC 32.4 g/dL (28.0-37.0); MCV 82.3 fL (80.0-100.0); MPV 9.6 fl. (7.2-11.1); NUCLEATED RBCS 0 /100WBC; PLATELET COUNT* 111 thou/uL (150-400); RBC 4.27 mil/uL (4.20-5.00); RDW-CV 20.3 % (10.5-14.5); WBC 2.9 thou/uL (4.0-11.0)
[2020-05-19 02:56] LABS: ABSOLUTE EOSINOPHILS 0.1 thou/uL (0.0-0.7); ABSOLUTE LYMPHOCYTES 1.9 thou/uL (0.8-5.3); ABSOLUTE MONOCYTES 0.3 thou/uL (0.0-1.2); ABSOLUTE NEUTROPHILS 0.5 thou/uL (1.6-8.1); ANISOCYTOSIS 1+; ATYPICAL LYMPHS 2 %; PLATELET ESTIMATE DECREASED; POIKILOCYTOSIS 1+
[2020-05-19 02:58] LABS: HYPOCHROMASIA 1+; POLYCHROMASIA Occasional
[2020-05-19 03:37] LABS: URINE BILIRUBIN NEGATIVE (Negative); URINE BLOOD NEGATIVE (Negative); URINE CLARITY CLEAR; URINE COLOR YELLOW; URINE GLUCOSE-RANDOM NEGATIVE (Negative); URINE KETONES NEGATIVE (Negative); URINE LEUKOCYTES-REFLEX NEGATIVE (Negative); URINE NITRITE-REFLEX NEGATIVE (Negative); URINE PROTEIN NEGATIVE (Negative); URINE SPECIFIC GRAVITY >= 1.030 (1.005-1.030); URINE UROBILINOGEN 0.2 E.U./dl (0.2-1.0)
[2020-05-19 03:54] VITALS: BP 146/77
--- NOTE | 2020-05-19 12:00 | EKG ---
[place] [address] ELECTROCARDIOGRAM REPORT Name: JOHNNYTODD L Room: [facility]#: [id number] Admission: 05/19/20 Attend Phys: Discharge: 05/19/20 Date of : 73 Date of Service: 05/19/20 0136 Report #: [id number] THIS REPORT FOR: //name// [facility] ED Test Date: 2020-05-19 Test Time: 01:36:02 Pat Name: TODD TURNER Department: Room: Gender: F Doll Repairer: [place] : 1975 Requested By: Cristiane Dalal Order Number: [id number] MD: Vadim Hammond Measurements Intervals [place] Rate: 93 P: 55 SC: 133 QRS: 47 QRSD: 72 T: 54 QT: 348 QTc: 433 Interpretive Statements Sinus rhythm Low voltage, precordial leads Baseline wander in lead(s) V2 Compared to ECG 08/28/2019 13:45:12 Low QRS voltage now present T-wave abnormality no longer present Electronically Signed On 05-19-2020 12:00:14 SERVICE CASHIER by Vadim Hammond [email or web address] <ELECTRONICALLY SIGNED> By: Sully Hammond MD, [facility] 05/19/20 1200 5 5 Sully Hammond MD, [facility] /EPI
== END 2020-05-19 03:55 | disposition home or self-care (01) ==
LOC: M.ERS 01:31
PROVIDERS: Personal Emergency Response Attendant
DX: K21.00 Gastro-esophageal reflux disease with esophagitis, without bleeding (principal); F41.9 Anxiety disorder, unspecified; R79.1 Abnormal coagulation profile; G43.909 Migraine, unspecified, not intractable, without status migrainosus; I10 Essential (primary) hypertension; Z98.51 Tubal ligation status; Z86.718 Personal history of other venous thrombosis and embolism; Z88.1 Allergy status to other antibiotic agents; Z88.8 Allergy status to other drugs, medicaments and biological substances